=== PATIENT | female | born 1990 | race Caucasian/White ===

== ENCOUNTER 2017-05-05 11:05 | Emergency (ER) | payer MEDICAID ==
[2017-05-05] MEDS ORDERED: NORMAL SALINE 1000 ML 1,000 ML IV ONE (12:32)
[2017-05-05] MEDS ORDERED: KETOROLAC TROMETHAMINE INJ/PF 30 MG/1 ML SDV IV ONE (12:33)
[2017-05-05] MEDS ORDERED: PROCHLORPERAZINE EDISYLATE INJ 10 MG/2 ML VIAL IV ONE (12:33)
[2017-05-05] MEDS ORDERED: DIPHENHYDRAMINE HCL 50 MG/ML VIAL IV ONE (12:34)
--- NOTE | 2017-05-05 12:35 | ER Document Report ---
ED Headache - General Chief Complaint: Headache Stated Complaint: HEADACHE Time Seen by Provider: 05/05/17 12:09 Notes: 18-year-old female patient to the emergency department chief complaint of headache. Patient states that she has had a headache on and off for approximately 2 weeks. Photophobia. Noise makes it worse. States that she has nausea. Denies history of migraines. No fevers. No chills. No sweats. States that she feels like she is going to pass out. Denies any seizures. Denies any history of infectious disease. No rash. No abdominal pain. Not . TRAVEL OUTSIDE OF THE [place] IN LAST 30 DAYS: No - Related Data Allergies/Adverse Reactions: [facility] Allergy (Verified 05/05/17 11:10) Past Medical History - General Information source: Patient - Social History Smoking Status: Current Every Day Smoker Chew tobacco use (# tins/day): No Frequency of alcohol use: Occasional Drug Abuse: None Family History: Reviewed & Not Pertinent Renal/ Medical History: Reports: Hx Ovarian Cysts - dermoid cyst. Denies: Hx Peritoneal Dialysis GI Medical History: Reports: Hx Gastritis, Hx Gastroesophageal Reflux Disease - BARRETS ESOPHAGUS, Hx Colonoscopy, Hx Endoscopy Musculoskeltal Medical History: Reports Hx Musculoskeletal Deformity, Reports Hx Musculoskeletal Trauma Skin Medical History: Reports Hx Cellulitis, Reports Hx MRSA Traumatic Medical History: Reports: Hx Fractures Past Surgical History: Reports: Hx Adenoidectomy, Hx Appendectomy, Hx Cholecystectomy, Hx Gynecologic Surgery - removal of cyst, Hx Oral Surgery - wisdom teeth, Hx Tonsillectomy - Immunizations Hx Diphtheria, Pertussis, Tetanus Vaccination: Yes Review of Systems - Review of Systems Constitutional: No symptoms reported, Malaise EENT: No symptoms reported, Other - Photophobia Cardiovascular: No symptoms reported, Dizziness, Lightheaded Respiratory: No symptoms reported Gastrointestinal: No symptoms reported Genitourinary: No symptoms reported Female Genitourinary: No symptoms reported Musculoskeletal: No symptoms reported Skin: No symptoms reported Hematologic/Lymphatic: No symptoms reported Neurological/Psychological: No symptoms reported, Headaches Physical Exam - Vital signs Vitals: Temp Pulse Resp BP Pulse Ox 99.2 F 85 17 128/81 H 100 05/05/17 11:07 05/05/17 11:07 05/05/17 11:07 05/05/17 11:07 05/05/17 11:07 Interpretation: Normal - General General appearance: Appears well, Alert - HEENT Head: Normocephalic, Atraumatic Eyes: Normal Conjunctiva: Normal Extraocular movements intact: Yes Pupils: PERRL Fundascopic: Normal Neck: Normal. No: Brudzinski, Meningismus - Respiratory Respiratory status: No respiratory distress Chest status: Nontender Breath sounds: Normal Chest palpation: Normal - Cardiovascular Rhythm: Regular Heart sounds: Normal auscultation Murmur: No - Abdominal Inspection: Normal Distension: No distension Bowel sounds: Normal Tenderness: Nontender Organomegaly: No organomegaly - Back Back: Normal, Nontender - Extremities General upper extremity: Normal inspection, Nontender, Normal color, Normal ROM , Normal temperature General lower extremity: Normal inspection, Nontender, Normal color, Normal ROM , Normal temperature, Normal weight bearing. No: Fabio's sign - Neurological Neuro grossly intact: Yes Cognition: Normal Orientation: AAOx4 Dima Coma Scale Eye Opening: Spontaneous Dima Coma Scale Verbal: Oriented Dima Coma Scale Motor: Obeys Commands [place] Coma Scale Total: 15 Speech: Normal Motor strength normal: LUE, RUE, LLE, RLE Sensory: Normal - Psychological Associated symptoms: Normal affect, Normal mood - Skin Skin Temperature: Warm Skin Moisture: Dry Skin Color: Normal Course - Re-evaluation Re-evalutation: 05/05/17 14:16 Labs- Entire Visit 05/05/17 05/05/17 05/05/17 13:00 13:00 13:00 WBC 10.3 RBC 4.80 Hgb 15.3 Hct 44.0 MCV 92 MCH 31.8 MCHC 34.7 RDW 12.6 Plt Count 213 Seg Neutrophils % 76.6 Lymphocytes % 17.6 Monocytes % 4.3 Eosinophils % 1.1 Basophils % 0.4 Absolute Neutrophils 7.9 Absolute Lymphocytes 1.8 Absolute Monocytes 0.4 Absolute Eosinophils 0.1 Absolute Basophils 0.0 PT 12.4 INR 0.86 Sodium 143.4 Potassium 4.1 Chloride 102 Carbon Dioxide 28 Anion Gap 13 BUN 10 Creatinine 0.72 Est GFR ( Amer) > 60 Est GFR (Non-Af Amer) > 60 Glucose 85 Calcium 10.1 Total Bilirubin 0.8 Direct Bilirubin 0.4 Indirect Bilirubin Not Reportable Neonat Total Bilirubin Not Reportable AST 39 H ALT 50 Alkaline Phosphatase 65 Total Protein 8.5 H Albumin 5.[address] 05/05/17 12:31 IMPRESSION: NORMAL BRAIN CT WITHOUT CONTRAST. EVIDENCE OF ACUTE STROKE: NO. 05/05/17 14:16 Patient is feeling much better. Received Benadryl, Compazine, Toradol and IV fluids. No vomiting while in the ED. Has no signs of meningitis. No fever. No stiff neck. No elevated white blood cell count. Will do a p.o. challenge and if patient is feeling much better we will discharge her. Patient advised to return immediately for any worsening symptoms or concerns especially if she develops fever, neck stiffness or other issues. - Vital Signs Vital signs: Temp Pulse Resp BP Pulse Ox 99.2 F 85 17 128/81 H 100 05/05/17 11:07 05/05/17 11:07 05/05/17 11:07 05/05/17 11:07 05/05/17 11:07 - Laboratory Result Diagrams: 05/05/17 13:00 05/05/17 13:00 Laboratory results interpreted by me: 05/05/17 13:00 AST 39 H Total Protein 8.5 H Albumin 5.3 H Discharge - Discharge Clinical Impression: Cluster headache syndrome, unspecified Disposition: HOME, SELF-CARE Instructions: Antinausea Medication ([facility]), Headache ([facility]), Toradol Injection ( [facility]) Additional Instructions: Headache The physician does not feel that the headache you are experiencing has a serious underlying cause. Most headaches are due to emotional stress, with resultant muscle tension (tension headache). Occasionally, headaches are secondary to changes in the blood vessels of the scalp (vascular headache and migraine headache). Sometimes, a headache is the first symptom of another developing illness, such as a viral infection. You have no evidence of stroke, bleeding, meningitis, or other serious cause of your headache. The treatment of headaches varies with the severity and cause of the pain. Not all headaches need pain shots. In fact, there is evidence that using narcotics for headaches may make them worse in the long run. The physician will determine the therapy that's in your best interest. If you develop a fever, if the headache is different from any you've previously experienced, or if the headache progressively worsens, then call your physician at once or go to the emergency room. Prescriptions: Ibuprofen [Motrin 600 Mg Tablet] 600 mg PO TID #15 tablet Ondansetron [Zofran Odt 4 mg Tablet] 1 - 2 tab PO Q4H PRN #15 tab.rapdis PRN Reason: For Nausea/Vomiting Referrals: MAXWELL CHRISTY MD [Primary Care Provider] - Follow up as needed
[2017-05-05 13:18] LABS: ABSOLUTE EOSINOPHILS # (AUTO) 0.1 10^3/uL (0.0-0.6); ABSOLUTE LYMPHOCYTES (AUTO) 1.8 10^3/uL (0.5-4.7); ABSOLUTE MONOCYTES (AUTO) 0.4 10^3/uL (0.1-1.4); ABSOLUTE NEUT (AUTO) 7.9 10^3/uL (1.7-8.2); BASOPHILS % (AUTO) 0.4 % (0-2); EOSINOPHILS % (AUTO) 1.1 % (0-6); HEMOGLOBIN 15.3 g/dL (12.0-15.5); HGB HCT DIFFERENCE 1.9; LYMPHOCYTES % (AUTO) 17.6 % (13-45); MEAN CORPUSCULAR HEMOGLOBIN 31.8 pg (27.0-33.4); MEAN CORPUSCULAR HGB CONC 34.7 g/dL (32.0-36.0); MEAN CORPUSCULAR VOLUME 92 fl (80-97); MONOCYTES % (AUTO) 4.3 % (3-13); RED CELL DISTRIBUTION WIDTH 12.6 % (11.5-14.0); SEGMENTED NEUTROPHILS % (AUTO) 76.6 % (42-78); WHITE BLOOD COUNT 10.3 10^3/uL (4.0-10.5)
[2017-05-05 13:23] LABS: PROTHROMBIN TIME 12.4 SEC (11.4-15.4)
[2017-05-05 13:31] LABS: ALANINE AMINOTRANSFERASE 50 U/L (9-52); ALBUMIN 5.3 g/dL (3.5-5.0); ALKALINE PHOSPHATASE 65 U/L (38-126); ANION GAP 13 (5-19); ASPARTATE AMINO TRANSFERASE 39 U/L (14-36); BILIRUBIN,DIRECT 0.4 mg/dL (0.0-0.4); BILIRUBIN,TOTAL 0.8 mg/dL (0.2-1.3); BLOOD UREA NITROGEN 10 mg/dL (7-20); CALCIUM 10.1 mg/dL (8.4-10.2); CARBON DIOXIDE 28 mmol/L (22-30); CHLORIDE 102 mmol/L (98-107); CREATININE RESULT 0.72 mg/dL (0.52-1.25); GLUCOSE 85 mg/dL (75-110); POTASSIUM 4.1 mmol/L (3.6-5.0); SODIUM 143.4 mmol/L (137-145); TOTAL PROTEIN 8.5 g/dL (6.3-8.2)
--- NOTE | 2017-05-05 13:34 | RADIOLOGY REPORT (SQ) ---
EXAM DESCRIPTION: CT HEAD WITHOUT COMPLETED DATE/TIME: 05/05/2017 12:54 pm REASON FOR STUDY: Headache with syncope COMPARISON: None. TECHNIQUE: Axial images acquired through the brain without intravenous contrast. Images reviewed wi th bone, brain and subdural windows. Images stored on PACS. All CT scanners at this facility use dose modulation, iterative reconstruction, and/or weight based d osing when appropriate to reduce radiation dose to as low as reasonably achievable (ALARA). [facility]: Dose Right [facility]: CareDose [facility]: Dose Right [facility]: Teradose 4D [facility]: Smart Immune Targeting Systems RADIATION DOSE: Up-to-date CT equipment and radiation dose reduction techniques were employed. CTDIv ol: 64.6 mGy. DLP: 1163 mGy-cm. mGy. LIMITATIONS: None. FINDINGS: VENTRICLES: Normal size and contour. CEREBRUM: No masses. No hemorrhage. No midline shift. No evidence for acute infarction. Normal gra y/white matter differentiation. No areas of low density in the white matter. CEREBELLUM: No masses. No hemorrhage. No alteration of density. No evidence for acute infarction. EXTRAAXIAL SPACES: No fluid collections. No masses. ORBITS AND GLOBE: No intra- or extraconal masses. Normal contour of globe without masses. CALVARIUM: No fracture. PARANASAL SINUSES: No fluid or mucosal thickening. SOFT TISSUES: No mass or hematoma. OTHER: No other significant finding. IMPRESSION: NORMAL BRAIN CT WITHOUT CONTRAST. EVIDENCE OF ACUTE STROKE: NO. COMMENT: Quality ID # [id number]: Final reports with documentation of one or more dose reduction techniques (e.g., Automated exposure control, adjustment of the mA and/or kV according to patient size, use of iterative reconstruction technique) TECHNICAL DOCUMENTATION: JOB ID: [id number]- All Rights Reserved
[2017-05-05 14:37] VITALS: BP 103/54
== END 2017-05-05 14:37 | disposition home or self-care (01) ==
LOC: ER 11:05
DX: G44.009 Cluster headache syndrome, unspecified, not intractable (principal); F17.200 Nicotine dependence, unspecified, uncomplicated
CPT/HCPCS: 99284; 36415; 85025; 85610; 80053; 70450; J1200; J1885; J0780; J7030

== ENCOUNTER 2017-11-07 12:22 | Emergency (ER) | payer SELFPAY ==
--- NOTE | 2017-11-07 12:57 | ER Document Report ---
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 She states she has had a left flank pain in varying degrees since the end of June 2017. She reports it is been progressively getting worse, especially bad this past week. 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 There is no nausea vomiting diarrhea. There is no frequency or dysuria. LMP was 2 weeks ago, lasted a week and a half, she has PCOS. I have greeted and performed a rapid initial assessment of this patient. A comprehensive ED assessment and evaluation of the patient, analysis of test results and completion of the medical decision making process will be conducted by additional ED providers. TRAVEL OUTSIDE OF THE [place] IN LAST 30 DAYS: No - Related Data Allergies/Adverse Reactions: cefaclor [From Ceclor] Allergy (Verified 11/07/17 12:23) Past Medical History - Social History Frequency of alcohol use: Rare Drug Abuse: None Renal/ Medical History: Reports: Hx Ovarian Cysts - dermoid cyst. Denies: Hx Peritoneal Dialysis GI Medical History: Reports: Hx Gastritis, Hx Gastroesophageal Reflux Disease - BARRETS ESOPHAGUS, Hx Colonoscopy, Hx Endoscopy Musculoskeltal Medical History: Reports Hx Musculoskeletal Deformity, Reports Hx Musculoskeletal Trauma Skin Medical History: Reports Hx Cellulitis, Reports Hx MRSA Traumatic Medical History: Reports: Hx Fractures Past Surgical History: Reports: Hx Adenoidectomy, Hx Appendectomy, Hx Cholecystectomy, Hx Gynecologic Surgery - removal of cyst, Hx Oral Surgery - wisdom teeth, Hx Tonsillectomy - Immunizations Hx Diphtheria, Pertussis, Tetanus Vaccination: Yes Physical Exam - Vital signs Vitals: Temp Pulse Resp BP Pulse Ox 98.1 F 95 16 117/87 H 96 11/07/17 12:25 11/07/17 12:25 11/07/17 12:25 11/07/17 12:25 11/07/17 12:25 Course - Vital Signs Vital signs: Temp Pulse Resp BP Pulse Ox 98.1 F 95 16 117/87 H 96 11/07/17 12:25 11/07/17 12:25 11/07/17 12:25 11/07/17 12:25 11/07/17 12:25
[2017-11-07 13:22] LABS: APPEARANCE,URINE SLIGHTLY-CLOUDY; BILIRUBIN,URINE NEGATIVE (NEGATIVE); COLOR,URINE COLORLESS; GLUCOSE, URINE NEGATIVE (NEGATIVE); KETONES,URINE NEGATIVE (NEGATIVE); LEUKOCYTE ESTERASE,URINE TRACE (NEGATIVE); NITRITE,URINE NEGATIVE (NEGATIVE); PROTEIN,URINE NEGATIVE (NEGATIVE); URINE SPECIFIC GRAVITY 1.002; UROBILINOGEN,URINE NEGATIVE mg/dL (<2.0)
[2017-11-07] MEDS ORDERED: KETOROLAC TROMETHAMINE INJ/PF 30 MG/1 ML SDV IM ONE (14:11)
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
[2017-11-07 15:34] VITALS: BP 110/68
== END 2017-11-07 15:20 | disposition home or self-care (01) ==
LOC: ER 12:22
DX: M54.6 Pain in thoracic spine (principal); G89.29 Other chronic pain; F17.200 Nicotine dependence, unspecified, uncomplicated; Z88.1 Allergy status to other antibiotic agents
CPT/HCPCS: 99284; 96372; 81025; 81001; J1885

== ENCOUNTER 2019-01-04 18:42 | Emergency (ER) | payer SELFPAY ==
[2019-01-04] MEDS ORDERED: HYDROCODONE/ACETAMINOPHEN 5-325 MG TABLET PO ONE (22:06)
--- NOTE | 2019-01-04 22:08 | ER Document Report ---
HPI - HPI Patient complains to provider of: Fall, back pain Time Seen by Provider: 01/04/19 22:06 Onset: This afternoon Onset/Duration: Sudden Quality of pain: Sharp Pain Level: 5 Context: Patient states she slipped falling down about 6 stairs landing on her back. Patient reports bruising to the right forearm but denies any significant pain to the arm. Patient denies any loss of consciousness or headache. Associated Symptoms: Other - Low back pain Exacerbated by: Movement Relieved by: Denies Similar symptoms previously: No Recently seen / treated by doctor: No - ROS ROS below otherwise negative: Yes Systems Reviewed and Negative: Yes All other systems reviewed and negative - NEURO Neurology: DENIES: Headache, Weakness - GASTROINTESTINAL Gastrointestinal: DENIES: Abdominal Pain, Nausea, Patient vomiting - REPRODUCTIVE Reproductive: DENIES: : - MUSCULOSKELETAL Musculoskeletal: REPORTS: Back Pain. DENIES: Extremity pain, Neck Pain - DERM Skin Color: Normal Skin Problems: None Past Medical History - General Information source: Patient - Social History Smoking Status: Current Every Day Smoker Frequency of alcohol use: None Drug Abuse: None Occupation: None Lives with: Family Family History: Reviewed & Not Pertinent Patient has suicidal ideation: No Patient has homicidal ideation: No Renal/ Medical History: Reports: Hx Ovarian Cysts - dermoid cyst. Denies: Hx Peritoneal Dialysis GI Medical History: Reports: Hx Gastritis, Hx Gastroesophageal Reflux Disease - BARRETS ESOPHAGUS, Hx Colonoscopy, Hx Endoscopy Musculoskeletal Medical History: Reports Hx Musculoskeletal Deformity, Reports Hx Musculoskeletal Trauma Skin Medical History: Reports Hx Cellulitis, Reports Hx MRSA Traumatic Medical History: Reports: Hx Fractures Past Surgical History: Reports: Hx Adenoidectomy, Hx Appendectomy, Hx Cholecystectomy, Hx Gynecologic Surgery - removal of cyst, Hx Oral Surgery - wisdom teeth, Hx Tonsillectomy - Immunizations Hx Diphtheria, Pertussis, Tetanus Vaccination: Yes Vertical Provider Document - CONSTITUTIONAL Agree With Documented VS: Yes Exam Limitations: No Limitations General Appearance: WD/WN, No Apparent Distress Notes: PHYSICAL EXAMINATION: GENERAL: Well-appearing, well-nourished and in no acute distress. HEAD: Atraumatic, normocephalic. EYES: sclera clear, anicteric, conjunctiva are normal. ENT: nares patent, Moist mucous membranes. NECK: Normal range of motion, supple no lymphadenopathy LUNGS: respirations unlabored HEART: Regular rate and rhythm without murmurs EXTREMITIES: Patient with ecchymosis to proximal third of right forearm, no deformity. Normal range of motion, no pitting or edema. No cyanosis. Gait normal, pt ambulates without difficulty BACK: Left lower lumbar paraspinal tenderness, lower lumbar midline tenderness, no deformities or step-offs. No CVA tenderness. NEUROLOGICAL: Cranial nerves grossly intact. Normal speech, normal gait. No saddle anesthesia. PSYCH: Normal mood, normal affect. SKIN: Warm, Dry, normal turgor, no rashes or lesions noted. - INFECTION CONTROL TRAVEL OUTSIDE OF THE [place] IN LAST 30 DAYS: No Course - Re-evaluation Re-evalutation: 01/04/19 23:19 The patient presents with low back pain without signs of spinal cord compressi on, cauda equina syndrome, infection, aneurysm, or other serious etiology. The patient is neurologically intact. Given the extremely risk of these diagnoses further testing and evaluation for these possibilities does not appear to be indicated at this time. Patient has been instructed to return if the symptoms worsen or change in any way. - Vital Signs Vital signs: Temp Pulse Resp BP Pulse Ox 97.9 F 85 16 133/76 H 98 01/04/19 19:22 01/04/19 19:22 01/04/19 19:22 01/04/19 19:22 01/04/19 19:22 - Diagnostic Test Radiology reviewed: Reports reviewed Discharge - Discharge Clinical Impression: Ecchymosis of forearm Fall Qualifiers: Encounter type: initial encounter Qualified Code(s): W19.XXXA - Unspecified fall, initial encounter Low back strain Qualifiers: Encounter type: initial encounter Qualified Code(s): S39.012A - Strain of muscle, fascia and tendon of lower back, initial encounter Condition: Stable Disposition: HOME, SELF-CARE Instructions: Contusion ([facility]), Ice Packs ([facility]), Low Back Pain ([facility]), Muscle Relaxers ([facility]) Additional Instructions: Return immediately for any new or worsening symptoms Followup with your primary care provider, call tomorrow to make a followup appointment Prescriptions: Metaxalone [Skelaxin 800 mg Tablet] 800 mg PO ASDIR PRN #15 tablet PRN Reason: Naproxen [Naprosyn 250 Nmg Tablet] 1 tab PO BID #14 tablet Referrals: TED BAH MD [COMMUNITY BASED STAFF] - Follow up as needed
--- NOTE | 2019-01-04 23:11 | RADIOLOGY REPORT (SQ) ---
EXAM DESCRIPTION: XR LUMBAR SPINE ANTEROPOSTERIOR, LATERAL, AND OBLIQUES COMPLETED DATE/TME: 01/04/2019 22:06 CLINICAL HISTORY: 28 years, Female, fall, low back pain COMPARISON: None. NUMBER OF VIEWS: 5 TECHNIQUE: 5 view lumbar spine LIMITATIONS: None. FINDINGS: 5 lumbar type vertebral bodies. Height and alignment is preserved. There are no pars defects. The disc spaces are maintained. Sacroiliac joints are preserved. IMPRESSION: Unremarkable lumbar spine copyright 2010 [employer]- All Rights Reserved
[2019-01-05 02:35] VITALS: BP 131/75
== END 2019-01-04 23:57 | disposition home or self-care (01) ==
LOC: ER 18:42
DX: S39.012A Strain of muscle, fascia and tendon of lower back, initial encounter (principal); S50.11XA Contusion of right forearm, initial encounter; W10.9XXA Fall (on) (from) unspecified stairs and steps, initial encounter; F17.200 Nicotine dependence, unspecified, uncomplicated
CPT/HCPCS: 72110; 99283